=== PATIENT | female | born 1985 | race Caucasian/White ===

== ENCOUNTER 2020-07-30 05:59 | Day surgery (SDC) | payer OTHER ==
[~2020-07-30 05:59] MED LIST: ACETAMINOOPHEN-1 TAB PO; ANAPROX275 MG PO; LABETALOL HCL200 MG PO
[2020-07-30] MEDS ORDERED: PERCOCET 5-3251 EACH PO (17:33)
[2020-07-30] MEDS ORDERED: COLACE100 MG PO (17:33)
[2020-07-30] MEDS ORDERED: NEURONTIN600 M1 PO (17:33)
== END 2020-07-30 21:10 | disposition home or self-care (01) ==
LOC: CIR.AMB 05:59
PROVIDERS: ATTEND Surgery
DX: K43.0 Incisional hernia with obstruction, without gangrene (principal); Z20.822 Contact with and (suspected) exposure to COVID-19

== ENCOUNTER 2021-04-27 08:15 | Inpatient (IN) | payer OTHER ==
[~2021-04-27] VITALS: Ht 154.9 cm; Wt 90.7 kg
[~2021-04-27 08:15] MED LIST changes: +COLACE100 MG PO; +NEURONTIN600 M1 PO; +PERCOCET 5-3251 EACH PO
== END 2021-05-01 11:45 | disposition home or self-care (01) | DRG 742 ==
LOC: O/R 04-30 06:20 → OB/GYN 04-30 06:20
PROVIDERS: Surgery; ADMIT Obstetrics & Gynecology Gynecologic Oncology; ATTEND Obstetrics & Gynecology Gynecologic Oncology
PROC: 0W9F0ZZ Drainage of Abdominal Wall, Open Approach (ICD-10-PCS; 2021-04-30)
PROC: 0UT94ZZ Resection of Uterus, Percutaneous Endoscopic Approach (ICD-10-PCS; principal; 2021-04-30 07:00)
PROC: 0UT74ZZ Resection of Bilateral Fallopian Tubes, Percutaneous Endoscopic Approach (ICD-10-PCS; 2021-04-30 07:00)
DX: N80.0 Endometriosis of uterus (principal); K91.62 Intraoperative hemorrhage and hematoma of a digestive system organ or structure complicating other procedure; K43.2 Incisional hernia without obstruction or gangrene; D25.2 Subserosal leiomyoma of uterus; N80.1 Endometriosis of ovary; N83.8 Other noninflammatory disorders of ovary, fallopian tube and broad ligament; N94.89 Other specified conditions associated with female genital organs and menstrual cycle; Z53.31 Laparoscopic surgical procedure converted to open procedure; N73.6 Female pelvic peritoneal adhesions (postinfective); N99.4 Postprocedural pelvic peritoneal adhesions